=== PATIENT | male | born 1980 | race Two or more races ===

== ENCOUNTER 2023-05-02 13:51 | Emergency (ER) | payer OTHER ==
[~2023-05-02] VITALS: Ht 195.6 cm; Wt 131.5 kg
[2023-05-02] MEDS ORDERED: ZESTRIL10 M1 (14:11)
[2023-05-02] MEDS ORDERED: CONCERTA36 MG (14:11)
[2023-05-02] MEDS ORDERED: DICLOFENAC SODI75 MG PO (15:49)
== END 2023-05-02 15:54 | disposition home or self-care (01) ==
LOC: ER 13:52
DX: S89.82XA Other specified injuries of left lower leg, initial encounter (principal); W18.39XA Other fall on same level, initial encounter; Y93.89 Activity, other specified; Y92.480 Sidewalk as the place of occurrence of the external cause; S89.81XA Other specified injuries of right lower leg, initial encounter; S99.821A Other specified injuries of right foot, initial encounter; S99.812A Other specified injuries of left ankle, initial encounter
CPT/HCPCS: 73560; 73600; 73630; 96372; 99284; J1885